=== PATIENT | male | born 1995 | race Caucasian/White ===

== ENCOUNTER 2018-10-09 21:48 | Emergency (ER) | payer OTHER ==
[2018-10-09 22:14] VITALS: BP 118/70; PULSE 76; TEMP 98; BMI 29.2
--- NOTE | 2018-10-09 22:35 | PDOC ---
History of Present Illness - General Chief Complaint: Pain Stated Complaint: LEFT SHOULDER PAIN Time Seen by Provider: 10/09/18 22:31 History Source: Patient Exam Limitations: No Limitations - History of Present Illness Initial Comments: 10/09/18 23:27 The patient is a 23M with no PMH who presents with sudden onset L shoulder pain after lifting multiple boxes at work. He denies any numbness, tingling, or weakness. He denies taking anything for the pain. Past History - Past Medical History Allergies/Adverse Reactions: Allergies Allergy/AdvReac Type Severity Reaction Status Date / Time No Known Allergies Allergy Verified 10/09/18 22:12 Home Medications: Ambulatory Orders NK [No Known Home Medication] 10/09/18 COPD: No Other medical history: Pt denies - Suicide/Smoking/Psychosocial Hx Smoking History: Never smoked Have you smoked in the past 12 months: No Information on smoking cessation initiated: No Hx Alcohol Use: No Drug/Substance Use Hx: No Review of Systems - Review of Systems Able to Perform ROS?: Yes Is the patient limited Afghan proficient: No Musculoskeletal: Yes: Other (L shoulder pain) Neurological: No: Numbness, Tingling, Weakness *Physical Exam - Vital Signs Last Vital Signs Temp Pulse Resp BP Pulse Ox 98.0 F 76 18 118/70 99 10/09/18 22:12 10/09/18 22:12 10/09/18 22:12 10/09/18 22:12 10/09/18 22:12 - Physical Exam General Appearance: Yes: Nourished, Appropriately Dressed. No: Apparent Distress HEENT: positive: Normal Voice, Hearing Grossly Normal Respiratory/Chest: positive: Lungs Clear, Normal Breath Sounds. negative: Chest Tender Cardiovascular: positive: Regular Rhythm, Regular Rate, S1, S2. negative: Diastolic Murmur, Systolic Murmur Gastrointestinal/Abdominal: positive: Flat, Soft. negative: Tender Musculoskeletal: positive: Other (TTP over L anterior shoulder with limited ROM) Integumentary: positive: Dry, Warm Neurologic: positive: Other (Neurovascularly intact in L shoulder. Sensation intact over L deltoid.) Moderate Sedation - Procedure Monitoring Vital Signs: Procedure Monitoring Vital Signs Temperature 98.0 F 10/09/18 22:12 Pulse Rate 76 10/09/18 22:12 Respiratory Rate 18 10/09/18 22:12 Blood Pressure 118/70 10/09/18 22:12 O2 Sat by Pulse Oximetry (%) 99 10/09/18 22:12 Medical Decision Making - Medical Decision Making 10/09/18 23:29 The patient is a 23M with no PMH who presents to the ER with sudden onset L shoulder pain. XR negative. Will d/c with ortho f/u and place in sling. *DC/Admit/Observation/Transfer Diagnosis at time of Disposition: Shoulder pain, acute Qualifiers: Laterality: left Qualified Code(s): M25.512 - Pain in left shoulder - Discharge Dispostion Disposition: HOME Condition at time of disposition: Stable Decision to Admit order: No - Referrals - Patient Instructions Printed Discharge Instructions: DI for Shoulder Pain Additional Instructions: Please follow up with the orthopedic surgeon in 1 week. Please take tylenol or motrin as needed for pain and ice it as needed. Please return to the ER if you have any signs or symptoms of chest pain, shortness of breath, uncontrollable fever, chills, nausea, vomiting, numbness, tingling, or weakness in any part of your body, changes in vision, or slurred speech. Please return to the ER if symptoms persist, worsen, or new symptoms arise. - Post Discharge Activity Forms/Work/School Notes: Back to Work
--- NOTE | 2018-10-09 22:38 | PDOC ---
Attending Attestation - HPI HPI: This patient is a 23 year old male with no significant PMHx, who presents with left shoulder pain and possible dislocation at 5:30 pm. Patient states that he was at work lifting boxes when he hurt his left shoulder. Now complaining of limited ROM, secondary to pain. 10/09/18 23:22 - Physicial Exam PE: Agree with Resident's Exam. 10/09/18 23:22 <Paulette Fraser - Last Filed: 10/09/18 23:21> - Resident Resident Name: Anthony Lara - ED Attending Attestation I have performed the following: I have examined & evaluated the patient, The case was reviewed & discussed with the resident, I agree w/resident's findings & plan - Medical Decision Making 10/09/18 23:27 23-year-old male with left shoulder pain, sudden onset after lifting a heavy object over his head X-ray showed no acute abnormality Patient we placed in a sling with orthopedic follow-up with presumed soft tissue injury <Day Wei - Last Filed: 10/09/18 23:28> Attestations - Attestations 10/09/18 23:22 Documentation prepared by Paulette Fraser, acting as medical accounts receivable specialist for Day Wei DO. <Paulette Fraser - Last Filed: 10/09/18 23:21>
[2018-10-09] MEDS ORDERED: KETOROLAC TROMETHAMINE 60 MG/2 ML VIAL IM ONE (23:25)
[2018-10-09] MEDS ORDERED: KETOROLAC TROMETHAMINE 60 MG/2 ML VIAL ONE (23:27)
== END 2018-10-09 23:33 | disposition home or self-care (01) ==
LOC: JER 21:48
PROC: 3E0233Z Introduction of Anti-inflammatory into Muscle, Percutaneous Approach (ICD-10-PCS; principal; 2018-10-09)
DX: M25.512 Pain in left shoulder (principal); X50.0XXA Overexertion from strenuous movement or load, initial encounter; Y93.89 Activity, other specified; Y92.512 Supermarket, store or market as the place of occurrence of the external cause; Y99.0 Civilian activity done for income or pay
CPT/HCPCS: 73030-TC-LT-FY; 99283-25

== ENCOUNTER 2020-02-17 15:52 | Emergency (ER) | payer OTHER ==
[2020-02-17 15:59] VITALS: TEMP 97.8; BMI 27.4
[2020-02-17 16:40] LABS: HEMATOCRIT 43.5 % (35.4-49); HEMOGLOBIN 14.8 GM/dl (11.7-16.9); MCH 27.7 pg (25.7-33.7); MCHC 34.1 g/dl (32.0-35.9); MEAN CELL VOLUME 81.2 fl (80-96); MEAN PLT VOLUME 8.5 fl (7.5-11.1); PLATELET COUNT 314 K/MM3 (134-434); RBC 5.35 M/mm3 (4.00-5.60); RDW 13.4 % (11.9-15.9); WHITE BLOOD COUNT 7.9 K/mm3 (4.0-10.8)
[2020-02-17 16:54] LABS: ALBUMIN 4.5 g/dl (3.4-5.0); BILIRUBIN,TOTAL 0.9 mg/dl (0.2-1); CALCIUM 9.2 mg/dl (8.5-10); CREATININE 0.8 mg/dl (0.55-1.3); POTASSIUM 3.7 mmol/L (3.5-5.1); TOT PROT 7.6 g/dl (6.4-8.2)
[2020-02-17 17:23] VITALS: BP 126/77; PULSE 72
[2020-02-17 17:41] LABS: PLATELET ESTIMATE ADEQUATE
== END 2020-02-17 17:20 | disposition home or self-care (01) ==
LOC: FER 15:52
DX: R07.89 Other chest pain (principal)
CPT/HCPCS: 36415; 80053; 82550; 82553; 84484; 85025; 93005; 99284-25

== ENCOUNTER 2020-05-15 17:15 | Emergency (ER) | payer OTHER ==
--- OUTSIDE RECORDS SUMMARY | 2020-05-15 17:26 | XMS ---
:1995 Author Organization [facility] Support Name Relationship Address Phone CHAD AND FAISAL Unavailable [address] [place] [address] ADAM PENA PARTNER [address] [place] [address] Re-disclosure Warning The records that you are about to access may contain information from federally- assisted alcohol or drug abuse programs. If such information is present, then the following federally mandated warning applies: This information has been disclosed to you from records protected by federal confidentiality rules (42 CFR part 2). The federal rules prohibit you from making any further disclosure of this information unless further disclosure is expressly permitted by the written consent of the person to whom it pertains or as otherwise permitted by 42 CFR part 2. A general authorization for the release of medical or other information is NOT sufficient for this purpose. The Federal rules restrict any use of the information to criminally investigate or prosecute any alcohol or drug abuse patient.The records that you are about to access may contain highly sensitive health information, the redisclosure of which is protected by Article 27-F of the [facility] Public Health law. If you continue you may haveaccess to information: Regarding HIV / AIDS; Provided by facilities licensed or operated by the [facility] Office of Mental Health; or Provided by the [facility] Office for People With Developmental Disabilities. If such information is present, then the following [facility] mandated warning applies: This information has been disclosed to you from confidential records which are protected by state law. State law prohibits you from making any further disclosure of this information without the specific written consent of the person to whom it pertains, or as otherwise permitted by law. Any unauthorized further disclosure in violation of state law may result in a fine or correction sentence or both. A general authorization for the release of medical or other information is NOT sufficient authorization for further disclosure. Insurance Providers Payer name Policy type Policy ID Covered Covered democrat's Policy P laure / Coverage democrat ID relationship to [place] Inf ormation type [place] [id number] SP [id number] [employer] [id number] SP [id number] INSURANCE Results ID Date Data Source [id number] 12/26/2019 12:00:00 AM EDT [facility] Name Value Range Interpretation Code Description Data Floridalma rce(s) Supporting Document(s ) [facility] RNA XXX JOSEPHINE+probe- Imp This lab was ordered by [facility] and reported by [employer] ID Date Data Source [id number] 12/15/2019 12:00:00 AM EDT [facility] Name Value Range Interpretation Code Description Data Floridalma rce(s) Supporting Document(s ) V [facility] RNA XXX JOSEPHINE+probe- Imp This lab was ordered by [facility] and reported by [employer] ID Date Data Source [id number] 12/01/2019 12:00:00 AM EDT [facility] Name Value Range Interpretation Code Description Data Floridalma rce(s) Supporting Document(s ) [facility] RNA XXX JOSEPHINE+probe- Imp This lab was ordered by [facility] and reported by [employer] Procedure
[2020-05-15 17:29] VITALS: BP 158/73; PULSE 80; TEMP 98.5; BMI 27.4
--- NOTE | 2020-05-15 17:59 | PDOC ---
History of Present Illness - General Chief Complaint: Laceration Stated Complaint: THUMB LACERATION Time Seen by Provider: 05/15/20 17:25 History Source: Patient Exam Limitations: No Limitations - History of Present Illness Initial Comments: 05/15/20 17:56 24-year-old male no past medical history here status post laceration to his left thumb. Patient states he was cutting meat subsequently slipped with a knife and cut dorsally to his left was bleeding initially quite a bit he applied pressure bleeding did improve his last tetanus was within the last 5 years happened just prior to arrival no distal numbness or tingling no other injury sustained Past History - Medical History Allergies/Adverse Reactions: Allergies Allergy/AdvReac Type Severity Reaction Status Date / Time pork derived (porcine) Allergy Verified 02/17/20 15:55 Home Medications: Ambulatory Orders Sertraline HCl [Zoloft] 25 mg PO DAILY 05/15/20 COPD: No - Psycho-Social/Smoking History Smoking History: Never smoked Have you smoked in the past 12 months: No - Substance Abuse Hx (Audit-C & DAST Scrn) How often the patient has a drink containing alcohol: Never Score: In Men: 4 or > Positive; In Women: 3 or > Positive: 0 Screen Result (Pos requires Nsg. Audit-10AR): Negative In the last yr the pt used illegal drug/Rx for NonMed reason: No Score: Yes response is considered Positive: 0 Screen Result (Positive result requires Nsg. DAST-10): Negative Review of Systems - Review of Systems Constitutional: No: Chills, Diaphoresis, Fever HEENTM: No: Eye Pain Respiratory: No: Cough, Orthopnea, Shortness of Breath Cardiac (ROS): No: Chest Pain ABD/GI: No: Abdominal Distended, Diarrhea, Nausea, Poor Fluid Intake Musculoskeletal: Yes: Other (laceration). No: Back Pain, Joint Pain Integumentary: Yes: Other (laceration) Neurological: No: Headache, Numbness, Dizziness All Other Systems: Reviewed and Negative *Physical Exam - Vital Signs Last Vital Signs Temp Pulse Resp BP Pulse Ox 98.5 F 80 15 158/73 100 05/15/20 17:21 05/15/20 17:21 05/15/20 17:21 05/15/20 17:21 05/15/20 17:21 - Physical Exam 05/15/20 17:57 Patient is awake alert no acute distress head is atraumatic examination of the left hand demonstrates a laceration approximately 2 cm over the dorsum of the left thumb just proximal to the IP joint. There is active bleeding which is controlled with pressure examination the tendon demonstrates extensor tendons of the thumb to be intact distally is neurovascular intact 2+ median ulnar pulses Medical Decision Making - Medical Decision Making 05/15/20 17:57 no other injuries 24-year-old male status post laceration to his left thumb he is right-hand dominant tetanus is up-to-date plan sutures A 4-0 Prolene was placed deep stitch to control some bleeding subsequently then 4 nylon 5-0 sutures were placed patient tolerated well sterile dressing with bacitracin was applied following Discharge - Discharge Information Problems reviewed: Yes Clinical Impression/Diagnosis: Laceration Condition: Improved Disposition: HOME - Admission No - Follow up/Referral - Patient Discharge Instructions Patient Printed Discharge Instructions: DI for Laceration Repair Additional Instructions: You received stitches in your left thumb today. You should leave the dressing that has been applied intact for 2 days after that time he may wash with mild soap and water. You should apply bacitracin or any [id number] triple antibiotic cream twice daily. Return for redness swelling yellow discharge or any concerns for infection otherwise you may return within 7 to 10 days for suture removal here in the ED - Post Discharge Activity Work/Back to School Note: Back to Work
== END 2020-05-15 18:11 | disposition home or self-care (01) ==
LOC: FER 17:15
DX: S60.012A Contusion of left thumb without damage to nail, initial encounter (principal)
CPT/HCPCS: 99282-25

== ENCOUNTER 2020-05-24 12:34 | Emergency (ER) | payer OTHER ==
[2020-05-24 12:37] VITALS: BP 123/76; PULSE 63; TEMP 98.1; BMI 27.4
--- NOTE | 2020-05-24 13:17 | PDOC ---
Suture Removal/Wound Check HPI - History of Present Illness Chief Complaint: Suture/Staple Removal(Here) Stated Complaint: suture removal Time Seen by Provider: 05/24/20 12:35 History Source: Yes: Patient Exam Limitations: Yes: No Limitations Treated at: [facility] ED Date of Last ED visit: 05/15/20 - Previous ED Treatment Type of procedure performed on last visit: Yes: Laceration Repair Tetanus Immunization: Yes: Up to Date Antibiotics Prescribed: No - Onset of Previous Treatment Date of Occurence: 05/15/20 Comment:: 05/24/20 13:17 pt presenting for suture removal no complaints, no redness/swelling/pain exam: sutures in place, no signs of infection a&p appeared healed, 2 sutures removed, however there is some gaping in the wound. placed a drop of dermabond will have pt return in 3-4 days for reeavluation. Past History - Medical History Allergies/Adverse Reactions: Allergies Allergy/AdvReac Type Severity Reaction Status Date / Time pork derived (porcine) Allergy Verified 05/24/20 12:35 Home Medications: Ambulatory Orders Sertraline HCl [Zoloft] 25 mg PO DAILY 05/15/20 COPD: No - Psycho-Social/Smoking History Smoking History: Never smoked Have you smoked in the past 12 months: No - Substance Abuse Hx (Audit-C & DAST Scrn) How often the patient has a drink containing alcohol: Never Score: In Men: 4 or > Positive; In Women: 3 or > Positive: 0 Screen Result (Pos requires Nsg. Audit-10AR): Negative In the last yr the pt used illegal drug/Rx for NonMed reason: No Score: Yes response is considered Positive: 0 Screen Result (Positive result requires Nsg. DAST-10): Negative *Physical Exam - Vital Signs Last Vital Signs Temp Pulse Resp BP Pulse Ox 98.1 F 63 18 123/76 100 05/24/20 12:34 05/24/20 12:34 05/24/20 12:34 05/24/20 12:34 05/24/20 12:34 Discharge - Discharge Information Problems reviewed: Yes Clinical Impression/Diagnosis: Laceration Condition: Stable Disposition: HOME - Admission No - Follow up/Referral - Patient Discharge Instructions Additional Instructions: Return in 3-4 days for reevaluation of your wound and possible suture removal. If there is any redness/swelling/pain return for reevaluation. Print Language: PORTUGUESE - Post Discharge Activity
--- OUTSIDE RECORDS SUMMARY | 2020-05-24 14:24 | XMS ---
:1995 Author Organization [facility] Support Name Relationship Address Phone CHAD AND FAISAL Unavailable [address] [place] [address] ADAM PENA PARTNER [address] [place] [address] Re-disclosure Warning The records that you are [...] is protected by Article 27-F of the [facility] Public Health law. If you continue you may haveaccess to information: Regarding HIV / AIDS; Provided by facilities licensed or operated by the [facility] Office of Mental Health; or Provided by the [facility] Office for People With Developmental Disabilities. If such information is present, then the following [facility] mandated warning applies: This information has been [...] law may result in a fine or care home sentence or both. A general authorization for the release of medical or other information is NOT sufficient authorization for further disclosure. Insurance Providers Payer name Policy type Policy ID Covered Covered libertarian's Policy P laure / Coverage libertarian ID relationship to [place] Inf ormation type [place] [employer] [id number] SP [id number] PENDING WC/NF [id number] SP [id number] ONLY MVP MEDICA[place] [id number] SP [id number] [employer] [id number] SP [id number] INSURANCE Results ID Date Data Source [id number] 12/26/2019 12:00:00 AM EDT [facility] Name Value Range Interpretation Code Description Data Floridalma rce(s) Supporting Document(s ) [facility]CoV [facility] RNA XXX JOSEPHINE+probe- Imp This lab was ordered by [facility] and reported by [employer] ID Date Data Source [id number] 12/15/2019 12:00:00 AM EDT [facility] Name Value Range Interpretation Code Description Data Floridalma rce(s) Supporting Document(s ) nCoV [facility] RNA XXX JOSEPHINE+probe- Imp This lab was ordered by [facility] and reported by [employer] ID Date Data Source [id number] 12/01/2019 12:00:00 AM EDT [facility] Name Value Range Interpretation Code Description Data Floridalma rce(s) Supporting Document(s ) nCoV [facility] RNA XXX JOSEPHINE+probe- Imp This lab was ordered by [facility] [employer] [facility] and reported by [employer] Procedure
== END 2020-05-24 13:26 | disposition home or self-care (01) ==
LOC: FER 12:34
DX: Z48.02 Encounter for removal of sutures (principal)
CPT/HCPCS: 99281-25

== ENCOUNTER 2020-05-28 13:30 | Emergency (ER) | payer OTHER ==
[2020-05-28 13:43] VITALS: BP 123/62; PULSE 62; TEMP 98.6; BMI 27.3
--- NOTE | 2020-05-28 14:28 | PDOC ---
Suture Removal/Wound Check HPI - History of Present Illness Chief Complaint: Suture/Staple Removal(Here) Stated Complaint: LEFT THUMB SUTURE REMOVAL Time Seen by Provider: 05/28/20 14:15 History Source: Yes: Patient Exam Limitations: Yes: No Limitations Treated at: [facility] ED Date of Last ED visit: 05/15/20 - Previous ED Treatment Type of procedure performed on last visit: Yes: Laceration Repair Tetanus Immunization: Yes: Given at last ED visit Antibiotics Prescribed: No Past History - Medical History Allergies/Adverse Reactions: Allergies Allergy/AdvReac Type Severity Reaction Status Date / Time pork derived (porcine) Allergy Verified 05/24/20 12:35 Home Medications: Ambulatory Orders Sertraline HCl [Zoloft] 25 mg PO DAILY 05/15/20 COPD: No - Psycho-Social/Smoking History Smoking History: Never smoked Have you smoked in the past 12 months: No - Substance Abuse Hx (Audit-C & DAST Scrn) How often the patient has a drink containing alcohol: Never Score: In Men: 4 or > Positive; In Women: 3 or > Positive: 0 Screen Result (Pos requires Nsg. Audit-10AR): Negative In the last yr the pt used illegal drug/Rx for NonMed reason: No Score: Yes response is considered Positive: 0 Screen Result (Positive result requires Nsg. DAST-10): Negative Suture Removal/Wound Check PE - Physical Exam Laceration/Wound Check Symptoms: reports: None Current Severity Level: None Maximum Severity Level: Moderate Location of Laceration/Wound: left: Finger (thumb) *Review of Systems - Review of Systems Able to Perform ROS?: Yes 05/28/20 15:18 GEN: no fever, chills, malaise, or generalized weakness HEENT: no ear pain, congestion, sore throat, vision change, or eye pain CV: no chest pain, palpitations, lightheadedness, syncope, or edema RESP: no SOB, wheezing, or cough GI: no abdominal pain, nausea, vomiting, diarrhea, constipation, or rectal bleed : no dysuria, hematuria, or discharge MSK: no muscle weakness or pain, no joint swelling or pain NEURO: no headache, vertigo, numbness, tingling, or focal weakness PSYCH: no SI, HI, or behavior change SKIN: no jaundice, rash, lesions, or unexplained bruises ROS otherwise negative except as noted in HPI *Physical Exam - Vital Signs Last Vital Signs Temp Pulse Resp BP Pulse Ox 98.6 F 62 15 123/62 99 05/28/20 13:34 05/28/20 13:34 05/28/20 13:34 05/28/20 13:34 05/28/20 13:34 - Physical Exam 05/28/20 15:18 GENERAL: well-appearing, A/Ox4, no distress, answers questions appropriately, pleasant, wearing hat and sunglasses HEENT: PERRLA, EOMI, moist mucous membranes NECK/BACK: no midline ttp, no spinal step-off or deformity, no hematoma, full ROM, neck supple CARDIOVASCULAR: regular rate/rhythm, no MGR, strong peripheral pulses, capillary refill <2 seconds, extremities wwp, no edema LUNGS/RESPIRATORY: no respiratory distress, CTAB GI/ABDOMEN: symmetric tzan-ed-rdtp, normoactive BS, soft, no ttp, no midline pulsatile masses : no CVA tenderness MSK/EXTREMITIES: no muscle atrophy, no acute deformity SKIN: left radial aspect of thumb with 3cm healing laceration overlying the proximal phalanx without surrounding erythema or warmth, no wound dehiscence, Dermabond still in place on some areas, 3 simple interrupted sutures in place which are removed without issue, skin otherwise warm and dry, no pallor, no jaundice, no rash, no pathologic-appearing bruising NEUROLOGICAL: GCS 15, CN II-XII grossly intact, 5/5 strength proximally and distally, no facial droop Medical Decision Making - Medical Decision Making 05/28/20 14:30 24 YOM presents for removal of last 3 sutures from his thumb laceration. Initially some were removed but others left in d/t concern for mild dehiscence, but the wound now appears to be healing very well. The remaining 3 sutures are removed without issue and the patient tolerates the procedure well. Return precautions are discussed. Discharge - Discharge Information Problems reviewed: Yes Clinical Impression/Diagnosis: Encounter for removal of sutures Condition: Good Disposition: HOME - Admission No - Follow up/Referral - Patient Discharge Instructions Patient Printed Discharge Instructions: DI for Suture Removal Additional Instructions: You were seen in the ER for removal of your last three sutures from your left thumb wound. They were removed without issue and the would looks like it is healing well. Please follow up with your primary doctor. Let the remaining glue fall off the wound naturally. Come back for any new or worsening symptoms like worsening pain, swelling, pus drainage, significant bleeding, inability to move the thumb normally, numbness or tingling, skin redness, or signs of infection. - Post Discharge Activity Work/Back to School Note: Back to Work
== END 2020-05-28 14:31 | disposition home or self-care (01) ==
LOC: FER 13:30
DX: Z48.02 Encounter for removal of sutures (principal)
CPT/HCPCS: 99281-25

== ENCOUNTER 2024-02-07 14:37 | Emergency (ER) | payer OTHER ==
[2024-02-07 14:47] VITALS: BP 128/75; PULSE 85; RESP 18; TEMP 98.5; BMI 34.0
[2024-02-07] MEDS ORDERED: IBUPROFEN 400 MG TABLET (FP) PO ONE (16:07)
[2024-02-07] MEDS: IBUPROFEN 400 MG TABLET (FP) PO ONE (16:09)
== END 2024-02-07 18:38 | disposition home or self-care (01) ==
LOC: JERFT 14:37
DX: S99.911A Unspecified injury of right ankle, initial encounter (principal); X50.1XXA Overexertion from prolonged static or awkward postures, initial encounter; Y93.66 Activity, soccer
CPT/HCPCS: 73610-TC-RT-FY; 73630-TC-RT-FY; 99283-25

== ENCOUNTER 2025-01-09 21:25 | Emergency (ER) | payer OTHER ==
[2025-01-09 21:36] VITALS: BP 142/76; PULSE 94; RESP 18; TEMP 98.2; BMI 32.9
[2025-01-09 22:20] LABS: URINE APPEARANCE TURBID; URINE BILIRUBIN NEGATIVE (NEGATIVE); URINE COLOR YELLOW; URINE GLUCOSE (UA) NEGATIVE (NEGATIVE); URINE KETONE NEGATIVE (NEGATIVE); URINE LEUK ESTERASE NEGATIVE (NEGATIVE); URINE NITRITE NEGATIVE (NEGATIVE); URINE PROTEIN NEGATIVE (NEGATIVE); URINE UROBILINOGEN 0.2 mg/dL (0.2-1.0)
== END 2025-01-10 02:25 | disposition left against medical advice (07) ==
LOC: JER 21:25
DX: R10.31 Right lower quadrant pain (principal); R10.32 Left lower quadrant pain; R30.9 Painful micturition, unspecified
CPT/HCPCS: 76870-TC; 81003; 87086; 99284-25

== ENCOUNTER 2025-01-10 16:10 | Emergency (ER) | payer OTHER ==
[2025-01-10 16:28] VITALS: BP 142/79; PULSE 85; RESP 20; TEMP 98.4; BMI 30.9
[2025-01-10] MEDS ORDERED: LIDOCAINE HCL/PF 1% SDV 5ML VIAL ONE (16:58)
== END 2025-01-10 17:29 | disposition home or self-care (01) ==
LOC: JERFT 16:10
DX: N45.1 Epididymitis (principal)
CPT/HCPCS: 36415; 87491; 87591; 99284-25